=== PATIENT | male | born 1950 | race African-American/Black ===

== ENCOUNTER 2021-06-28 15:28 | Inpatient (IN) | payer MEDICARE, MEDICAID ==
[~2021-06-28] VITALS: Ht 185.4 cm; Wt 89.4 kg
[~2021-06-28 15:28] MED LIST: OMEP20CA14 PO; SUCR1ORA2 PO
[2021-06-28] MEDS ORDERED: ACETAMINOPHEN 500MG TABLET PO ONE (16:15)
[2021-06-28 19:05] LABS: HEMATOCRIT. 32.9 % (42.0-52.0); HEMOGLOBIN. 10.1 g/dL (14.0-18.0); MEAN CORPUSCULAR HEMOGLOBIN 18.7 pg (28.0-32.0); MEAN PLATELET VOLUME 8.3 fl (7.4-10.4); PLATELET 392 x1000/uL (130-400); RED BLOOD CELL COUNT 5.39 mill/uL (4.7-6.1); RED CELL DISTRIBUTION WIDTH 21.1 % (11.6-14.6)
[2021-06-28 19:13] LABS: CHLORIDE 98 mEq/L (98-107)
[2021-06-28] MEDS ORDERED: KETOROLAC 30MG/ML VIAL IV ONE (19:15)
[2021-06-28 19:20] LABS: PLATELET ESTIMATE NORMAL
[2021-06-28 21:02] LABS: INR 1.1; PROTHROMBIN TIME 11.8 sec (9.6-11.0)
[2021-06-28 21:03] LABS: ETHANOL BLOOD < 10 mg/dL
[2021-06-28 21:05] LABS: TOTAL IRON BINDING CAPACITY 415 ug/dL (250-450)
[2021-06-28 21:24] LABS: FOLIC ACID (FOLATE) SERUM 9.4 ng/mL (>5.38)
[2021-06-28] MEDS ORDERED: GUAIFENESIN 200MG/10ML SUGAR FREE UDC PO PRN (21:30)
[2021-06-28] MEDS ORDERED: TRAMADOL 50MG TABLET PO PRN (21:30)
[2021-06-28] MEDS ORDERED: DOCUSATE SODIUM 100MG CAPSULE PO PRN (21:30)
[2021-06-28] MEDS ORDERED: CLONIDINE 0.1MG TABLET PO PRN (21:30)
[2021-06-28] MEDS ORDERED: ACETAMINOPHEN 325MG TABLET PO PRN ×2 (21:30)
[2021-06-28] MEDS ORDERED: MAGNESIUM/ALUMINUM HYDROXIDE/SIMETHICONE 30ML UDC PO PRN (21:30)
[2021-06-28] MEDS ORDERED: ZOLPIDEM TARTRATE 5MG TABLET PO PRN (21:30)
[2021-06-28] MEDS ORDERED: NITROGLYCERIN 0.4MG TABLET SL SL PRN (21:30)
[2021-06-28] MEDS ORDERED: ONDANSETRON HCL 4MG/2ML INJ IV PRN (21:30)
[2021-06-28] MEDS ORDERED: IPRATROPIUM/ALBUTEROL 0.5-3(2.5)MG/3ML NEB NEB PRN (21:30)
[2021-06-28] MEDS: ENOXAPARIN 40MG/0.4ML SYR SUBCUT SCH (22:16)
[2021-06-28 22:30] VITALS: BP 143/80
[2021-06-29] VITALS: BP 143/80
[2021-06-29 00:06] LABS: CREATINE KINASE 233 IU/L (39-308)
[2021-06-29 00:08] LABS: CREATINE KINASE MB FRACTION < 1.0 ng/mL (0.5-3.6)
[2021-06-29] MEDS ORDERED: AMLO5TAB88 PO (00:18)
[2021-06-29] MEDS ORDERED: TRAM50TA3 PO (00:18)
[2021-06-29] MEDS ORDERED: OMEP20CA14 PO (00:18)
[2021-06-29] MEDS ORDERED: ATOR20TA65 PO (00:18)
[2021-06-29] MEDS ORDERED: BENA40TA9 PO (00:18)
[2021-06-29] MEDS ORDERED: PHEN95TA44 MT (00:18)
[2021-06-29] MEDS ORDERED: TAMS-11 MT (00:18)
[2021-06-29] MEDS ORDERED: FLUC200T51 PO (00:18)
[2021-06-29] MEDS ORDERED: TRAZ-251 PO (00:18)
[2021-06-29 04:00] VITALS: BP 156/80
[2021-06-29] MEDS ORDERED: *PATIENT'S OWN MEDICATION STORAGE XX SCH (05:45)
[2021-06-29] MEDS: MORPHINE SULFATE 2 MG/ML CPJ (NOT FOR IM USE) IV PRN ×2 (06:13→22:20)
[2021-06-29 07:06] LABS: CHLORIDE 102 mEq/L (98-107)
[2021-06-29 07:32] LABS: HEMATOCRIT. 31.4 % (42.0-52.0); HEMOGLOBIN. 9.4 g/dL (14.0-18.0); MEAN CORPUSCULAR HEMOGLOBIN 18.4 pg (28.0-32.0); MEAN CORPUSCULAR VOLUME 61.3 fL (80.0-94.0); MEAN PLATELET VOLUME 9.1 fl (7.4-10.4); PLATELET 377 x1000/uL (130-400); RED BLOOD CELL COUNT 5.12 mill/uL (4.7-6.1)
[2021-06-29 07:34] LABS: CREATINE KINASE 211 IU/L (39-308); PHOSPHORUS 1.7 mg/dL (2.5-4.9)
[2021-06-29 08:00] VITALS: BP 143/77
[2021-06-29] MEDS: ASCORBIC ACID 500 MG TABLET PO SCH ×2 (09:12→22:09)
[2021-06-29] MEDS: FAMOTIDINE 20MG TABLET PO SCH ×2 (09:12→22:10)
[2021-06-29] MEDS: CHOLECALCIFEROL (D3) 1000 UNIT TABLET PO SCH (09:13)
[2021-06-29] MEDS: METOPROLOL TARTRATE 25MG TABLET PO SCH ×2 (09:13→22:10)
[2021-06-29 12:00] VITALS: BP 143/84
[2021-06-29 13:46] LABS: PLATELET ESTIMATE NORMAL
[2021-06-29 16:00] VITALS: BP 148/77
[2021-06-29 20:00] VITALS: BP 139/83
[2021-06-29] MEDS: ENOXAPARIN 40MG/0.4ML SYR SUBCUT SCH (22:10)
[2021-06-30] VITALS: BP 136/74
[2021-06-30 04:00] VITALS: BP 178/79
[2021-06-30 05:26] LABS: *AMPHETAMINES SCREEN URINE NEGATIVE (NEGATIVE); *BARBITURATES SCREEN URINE NEGATIVE (NEGATIVE); *BENZODIAZEPINES SCREEN URINE NEGATIVE (NEGATIVE)
[2021-06-30 05:27] LABS: *COCAINE SCREEN URINE NEGATIVE (NEGATIVE); METHADONE URINE SCREEN NEGATIVE (NEGATIVE); OPIATES URINE SCREEN PRESUMTIVE POSITIVE (NEGATIVE); PHENCYCLIDINE URINE SCREEN NEGATIVE (NEGATIVE)
[2021-06-30 05:28] LABS: CANNABINOID URINE SCREEN NEGATIVE (NEGATIVE)
[2021-06-30 08:00] VITALS: BP 143/79
[2021-06-30] MEDS: ASCORBIC ACID 500 MG TABLET PO SCH ×2 (08:55→22:02)
[2021-06-30] MEDS: CHOLECALCIFEROL (D3) 1000 UNIT TABLET PO SCH (08:56)
[2021-06-30] MEDS: FAMOTIDINE 20MG TABLET PO SCH ×2 (08:56→22:02)
[2021-06-30] MEDS: METOPROLOL TARTRATE 25MG TABLET PO SCH ×2 (08:56→22:02)
[2021-06-30] MEDS: MORPHINE SULFATE 2 MG/ML CPJ (NOT FOR IM USE) IV PRN (14:43)
[2021-06-30 20:00] VITALS: BP 149/85
[2021-06-30 21:14] VITALS: BP 146/71
[2021-06-30] MEDS: ENOXAPARIN 40MG/0.4ML SYR SUBCUT SCH (21:30)
[2021-07-01] VITALS: BP 139/62
[2021-07-01 04:00] VITALS: BP 139/86
[2021-07-01 08:00] VITALS: BP 139/85
[2021-07-01] MEDS: ASCORBIC ACID 500 MG TABLET PO SCH ×2 (09:00→21:10)
[2021-07-01] MEDS: METOPROLOL TARTRATE 25MG TABLET PO SCH ×2 (09:00→21:12)
[2021-07-01] MEDS: FAMOTIDINE 20MG TABLET PO SCH ×2 (09:00→21:10)
[2021-07-01] MEDS: CHOLECALCIFEROL (D3) 1000 UNIT TABLET PO SCH (09:00)
[2021-07-01] MEDS ORDERED: HYDROMORPHONE HCL/PF 2MG/ML (OR) ONE (10:06)
[2021-07-01] MEDS ORDERED: DEXAMETHASONE 4MG/ML 1ML VIAL ONE (10:06)
[2021-07-01] MEDS ORDERED: TRANEXAMIC ACID 1,000 MG in SODIUM CHLORIDE 0.9% 100 ML IV NR (10:30)
[2021-07-01] MEDS ORDERED: TRANEXAMIC ACID 1,000 MG/10 ML IV NR (10:30)
[2021-07-01] MEDS ORDERED: EPINEPHRINE 1:1000 1 MG/ML AMP ONE (10:32)
[2021-07-01] MEDS ORDERED: MORPHINE SULFATE 10 MG/ML CPJ ONE (10:33)
[2021-07-01] MEDS ORDERED: VANCOMYCIN HCL 1 GM/VIAL ONE (10:33)
[2021-07-01] MEDS ORDERED: BUPIVACAINE HCL/PF 0.5% (5MG/ML) 10ML ONE (10:33)
[2021-07-01] MEDS ORDERED: BUPIVACAINE HCL 0.5% (5MG/ML) 50ML ONE (10:33)
[2021-07-01] MEDS ORDERED: KETOROLAC 30MG/ML VIAL ONE (10:33)
[2021-07-01] MEDS ORDERED: CALCIUM CHLORIDE 1GM/10ML SYR IV ONE (10:40)
[2021-07-01] MEDS ORDERED: ALBUMIN HUMAN 25GM/100ML (25%) IV ONE (10:40)
[2021-07-01] MEDS ORDERED: LABETALOL 5MG/ML SYR 20 MG/4 ML SYRINGE IV PRN (11:15)
[2021-07-01] MEDS ORDERED: MEPERIDINE HCL/PF 25MG/ML CPJ IV PRN (11:15)
[2021-07-01] MEDS ORDERED: ONDANSETRON HCL 4MG/2ML INJ IV PRN (11:15)
[2021-07-01] MEDS ORDERED: HYDROMORPHONE HCL/PF 2MG/ML CPJ IV PRN (11:15)
[2021-07-01] MEDS ORDERED: SKIN ADHESIVE 0.7 GM EA TOP ONE (11:20)
[2021-07-01] MEDS ORDERED: HYDROCODONE/ACETAMINOPHEN 10/325MG TABLET PO PRN (11:30)
[2021-07-01] MEDS ORDERED: CEFAZOLIN 1000MG PREMIX 50 ML IV ONE (11:30)
[2021-07-01] MEDS ORDERED: HYDROCODONE/ACETAMINOPHEN 5/325MG TABLET PO PRN (11:30)
[2021-07-01] MEDS ORDERED: KETOROLAC 30MG/ML VIAL IV PRN (11:30)
[2021-07-01] MEDS ORDERED: ACETAMINOPHEN 325MG TABLET PO PRN (11:30)
[2021-07-01] MEDS ORDERED: NALOXONE HCL 0.4MG/ML VIAL IV PRN (11:45)
[2021-07-01 16:00] VITALS: BP 137/70
[2021-07-01] MEDS: CEFAZOLIN 1000MG PREMIX 50 ML IV SCH ×2 (16:52→23:12)
[2021-07-01] MEDS: DEXT 5%/0.9% NACL 1,000 ML IV SCH (19:09)
[2021-07-01 20:00] VITALS: BP 160/79
[2021-07-01] MEDS: ENOXAPARIN 40MG/0.4ML SYR SUBCUT SCH (21:12)
[2021-07-02] VITALS: BP 149/76
[2021-07-02] MEDS: DEXT 5%/0.9% NACL 1,000 ML IV SCH ×2 (03:21→15:36)
[2021-07-02 04:00] VITALS: BP 154/79
[2021-07-02 08:00] VITALS: BP 136/69
[2021-07-02] MEDS: ASCORBIC ACID 500 MG TABLET PO SCH ×2 (08:50→22:41)
[2021-07-02] MEDS: METOPROLOL TARTRATE 25MG TABLET PO SCH ×2 (08:51→22:41)
[2021-07-02] MEDS: CHOLECALCIFEROL (D3) 1000 UNIT TABLET PO SCH (08:51)
[2021-07-02] MEDS: FAMOTIDINE 20MG TABLET PO SCH ×2 (08:51→22:41)
[2021-07-02] MEDS: CEFAZOLIN 1000MG PREMIX 50 ML IV SCH ×2 (08:52→15:35)
[2021-07-02 09:47] LABS: HEMATOCRIT. 27.8 % (42.0-52.0); HEMOGLOBIN. 8.3 g/dL (14.0-18.0); MEAN CORPUSCULAR HEMOGLOBIN 18.3 pg (28.0-32.0); MEAN CORPUSCULAR VOLUME 61.5 fL (80.0-94.0); MEAN PLATELET VOLUME 8.8 fl (7.4-10.4); PLATELET 383 x1000/uL (130-400); RED BLOOD CELL COUNT 4.51 mill/uL (4.7-6.1); RED CELL DISTRIBUTION WIDTH 20.8 % (11.6-14.6)
[2021-07-02 12:00] VITALS: BP 153/67
[2021-07-02 12:52] LABS: PLATELET ESTIMATE NORMAL
[2021-07-02] MEDS: ONDANSETRON HCL 4MG/2ML INJ IV PRN ×2 (14:09→22:39)
[2021-07-02 16:00] VITALS: BP 157/73
[2021-07-02 20:00] VITALS: BP 140/95
[2021-07-02] MEDS: ENOXAPARIN 40MG/0.4ML SYR SUBCUT SCH (21:30)
[2021-07-02] MEDS: KETOROLAC 15MG/ML VIAL IV PRN (22:40)
[2021-07-03] VITALS: BP 133/64
[2021-07-03] MEDS: DEXT 5%/0.9% NACL 1,000 ML IV SCH ×3 (00:45→22:53)
[2021-07-03] MEDS: CEFAZOLIN 1000MG PREMIX 50 ML IV SCH ×3 (00:45→16:03)
[2021-07-03 04:00] VITALS: BP 164/76
[2021-07-03] MEDS: METOPROLOL TARTRATE 25MG TABLET PO SCH ×2 (09:22→22:17)
[2021-07-03] MEDS: FAMOTIDINE 20MG TABLET PO SCH ×2 (09:22→22:16)
[2021-07-03] MEDS: CHOLECALCIFEROL (D3) 1000 UNIT TABLET PO SCH (09:22)
[2021-07-03] MEDS: ASCORBIC ACID 500 MG TABLET PO SCH (09:22)
[2021-07-03 11:54] VITALS: BP 129/68
[2021-07-03 16:00] VITALS: BP 139/69
[2021-07-03] MEDS: FERROUS SULFATE 300MG/5ML UDC PO SCH (17:46)
[2021-07-03] MEDS ORDERED: FERROUS SULFATE 325MG TABLET PO SCH (17:50)
[2021-07-03 20:00] VITALS: BP 141/75
[2021-07-03] MEDS: ENOXAPARIN 40MG/0.4ML SYR SUBCUT SCH (22:17)
[2021-07-03] MEDS ORDERED: KETOROLAC 15MG/ML VIAL IV PRN (22:45)
[2021-07-03] MEDS ORDERED: ZOLPIDEM TARTRATE 5MG TABLET PO PRN (22:45)
[2021-07-03] MEDS: KETOROLAC 15MG/ML VIAL IV PRN (22:47)
[2021-07-04] VITALS (8 sets, daily range): BP systolic 140–158; BP diastolic 57–77
[2021-07-04] MEDS: FERROUS SULFATE 300MG/5ML UDC PO SCH ×3 (07:05→17:40)
[2021-07-04] MEDS: DEXT 5%/0.9% NACL 1,000 ML IV SCH ×2 (07:05→16:30)
[2021-07-04] MEDS ORDERED: ASCORBIC ACID 500 MG TABLET PO SCH (09:00)
[2021-07-04] MEDS ORDERED: CYANOCOBALAMIN 1000MCG/ML VIAL IM SCH (09:00)
[2021-07-04] MEDS: CHOLECALCIFEROL (D3) 1000 UNIT TABLET PO SCH (12:03)
[2021-07-04] MEDS: METOPROLOL TARTRATE 25MG TABLET PO SCH ×2 (12:04→21:16)
[2021-07-04] MEDS: FAMOTIDINE 20MG TABLET PO SCH ×2 (12:04→21:16)
[2021-07-04] MEDS ORDERED: KETOROLAC 30MG/ML VIAL IV PRN (21:15)
[2021-07-04] MEDS: ENOXAPARIN 40MG/0.4ML SYR SUBCUT SCH (21:16)
[2021-07-17] MEDS ORDERED: CYANOCOBALAMIN 1000MCG/ML VIAL IM SCH (09:00)
== END 2021-07-04 22:40 | DRG 522 ==
LOC: ER 15:28 → 6EST 20:35 → SUPCPDRO 20:43 → ENRESERV 21:55
PROVIDERS: ADMIT Internal Medicine; ATTEND Internal Medicine
PROC: 0SRR0JA Replacement of Right Hip Joint, Femoral Surface with Synthetic Substitute, Uncemented, Open Approach (ICD-10-PCS; principal; 2021-07-01)
DX: S72.001A Fracture of unspecified part of neck of right femur, initial encounter for closed fracture (principal); E87.1 Hypo-osmolality and hyponatremia; D62 Acute posthemorrhagic anemia; I10 Essential (primary) hypertension; E61.1 Iron deficiency; K22.0 Achalasia of cardia; K21.9 Gastro-esophageal reflux disease without esophagitis; E53.8 Deficiency of other specified B group vitamins; Z20.822 Contact with and (suspected) exposure to COVID-19; D64.9 Anemia, unspecified; R13.10 Dysphagia, unspecified; R53.81 Other malaise; R26.9 Unspecified abnormalities of gait and mobility; W18.39XA Other fall on same level, initial encounter; Z79.899 Other long term (current) drug therapy; Z85.46 Personal history of malignant neoplasm of prostate; Z88.5 Allergy status to narcotic agent; Z87.891 Personal history of nicotine dependence; Z82.49 Family history of ischemic heart disease and other diseases of the circulatory system; Y93.89 Activity, other specified; Y92.89 Other specified places as the place of occurrence of the external cause; Y99.8 Other external cause status
CPT/HCPCS: 36415; 71045; 72170; 73552; 80053; 80305; 80320; 82550; 82553; 82607; 82746; 83540; 83550; 83735; 84100; 84443; 84484; 85025; 86850; 86900; 86920; 87426; 92610; 93005; 93970; 97116; 97162; 97166; 97530; 99285; C1776; J0690; J1100; J1170; J1650; J1885; J2270; J2405; J3370; J3420; J3490; J7042; J7050; P9047; G0480

== ENCOUNTER 2021-07-04 22:40 | Inpatient (IN) | payer MEDICARE, MEDICAID ==
[~2021-07-04] VITALS: Ht 185.4 cm; Wt 77.2 kg
[2021-07-04 22:40] VITALS: BP 138/76
[~2021-07-04 22:40] MED LIST changes: +AMLO5TAB88 PO; +ATOR20TA65 PO; +BENA40TA9 PO; +FLUC200T51 PO; +PHEN95TA44 MT; +TAMS-11 MT; +TRAM50TA3 PO; +TRAZ-251 PO
[2021-07-04] MEDS ORDERED: CLONIDINE 0.1MG TABLET PO PRN (23:30)
[2021-07-04] MEDS ORDERED: IPRATROPIUM/ALBUTEROL 0.5-3(2.5)MG/3ML NEB HHN PRN (23:30)
[2021-07-04] MEDS ORDERED: ONDANSETRON HCL 4MG TABLET PO PRN (23:30)
[2021-07-04] MEDS ORDERED: NITROGLYCERIN 0.4MG TABLET SL SL PRN (23:30)
[2021-07-04] MEDS ORDERED: MAGNESIUM/ALUMINUM HYDROXIDE/SIMETHICONE 30ML UDC PO PRN (23:30)
[2021-07-04] MEDS ORDERED: KETOROLAC 15MG/ML VIAL IV PRN (23:30)
[2021-07-04] MEDS ORDERED: NALOXONE HCL 0.4 MG/ML 1ML VIAL IV PRN (23:30)
[2021-07-05] MEDS: DEXT 5%/0.9% NACL 1,000 ML IV SCH ×3 (03:35→22:10)
[2021-07-05] MEDS ORDERED: KETOROLAC 30MG/ML VIAL IV PRN (07:15)
[2021-07-05 07:33] LABS: HEMATOCRIT. 26.7 % (42.0-52.0); HEMOGLOBIN. 8.3 g/dL (14.0-18.0); MEAN CORPUSCULAR HEMOGLOBIN 19.3 pg (28.0-32.0); MEAN CORPUSCULAR VOLUME 61.9 fL (80.0-94.0); MEAN PLATELET VOLUME 8.6 fl (7.4-10.4); PLATELET 408 x1000/uL (130-400); RED BLOOD CELL COUNT 4.31 mill/uL (4.7-6.1); RED CELL DISTRIBUTION WIDTH 20.7 % (11.6-14.6)
[2021-07-05 07:47] LABS: CHLORIDE 101 mEq/L (98-107)
[2021-07-05 08:00] VITALS: BP 118/61
[2021-07-05] MEDS: ASCORBIC ACID 500 MG TABLET PO SCH (09:14)
[2021-07-05] MEDS: FAMOTIDINE 20MG TABLET PO SCH ×2 (09:14→22:13)
[2021-07-05] MEDS: FERROUS SULFATE 300MG/5ML UDC PO SCH ×3 (09:14→18:48)
[2021-07-05] MEDS: CHOLECALCIFEROL (D3) 1000 UNIT TABLET PO SCH (09:15)
[2021-07-05] MEDS: CYANOCOBALAMIN 1000MCG/ML VIAL IM SCH (09:16)
[2021-07-05] MEDS: METOPROLOL TARTRATE 25MG TABLET PO SCH ×2 (09:16→22:12)
[2021-07-05] MEDS: ENOXAPARIN 40MG/0.4ML SYR SUBCUT SCH (09:16)
[2021-07-05] MEDS ORDERED: HYDROCODONE/ACETAMINOPHEN 5/325MG TABLET PO PRN (11:00)
[2021-07-05] MEDS ORDERED: HYDROCODONE/ACETAMINOPHEN 10/325MG TABLET PO PRN (11:00)
[2021-07-05] MEDS: ACETAMINOPHEN 325MG TABLET PO PRN ×2 (15:30→22:10)
[2021-07-05 20:00] VITALS: BP 149/55
[2021-07-05 20:29] LABS: PLATELET ESTIMATE INCREASED
[2021-07-06] MEDS: DEXT 5%/0.9% NACL 1,000 ML IV SCH ×2 (06:52→16:21)
[2021-07-06 06:56] LABS: HEMATOCRIT. 25.1 % (42.0-52.0); HEMOGLOBIN. 7.9 g/dL (14.0-18.0); MEAN CORPUSCULAR HEMOGLOBIN 19.7 pg (28.0-32.0); MEAN CORPUSCULAR VOLUME 62.7 fL (80.0-94.0); MEAN PLATELET VOLUME 8.8 fl (7.4-10.4); PLATELET 411 x1000/uL (130-400); RED CELL DISTRIBUTION WIDTH 21.3 % (11.6-14.6)
[2021-07-06 08:00] VITALS: BP 158/73
[2021-07-06] MEDS: ASCORBIC ACID 500 MG TABLET PO SCH (08:12)
[2021-07-06] MEDS: CHOLECALCIFEROL (D3) 1000 UNIT TABLET PO SCH (08:12)
[2021-07-06] MEDS: METOPROLOL TARTRATE 25MG TABLET PO SCH ×2 (08:12→20:46)
[2021-07-06] MEDS: FAMOTIDINE 20MG TABLET PO SCH ×2 (08:12→20:46)
[2021-07-06] MEDS: FERROUS SULFATE 300MG/5ML UDC PO SCH ×3 (08:12→16:21)
[2021-07-06] MEDS: ENOXAPARIN 40MG/0.4ML SYR SUBCUT SCH (08:13)
[2021-07-06] MEDS: CYANOCOBALAMIN 1000MCG/ML VIAL IM SCH (08:13)
[2021-07-06 13:48] LABS: NUCLEATED RED BLOOD CELLS 1 /100 WBC; PLATELET ESTIMATE INCREASED
[2021-07-06] MEDS: DOCUSATE SODIUM 100MG CAPSULE PO PRN (16:21)
[2021-07-06] MEDS: ACETAMINOPHEN 325MG TABLET PO PRN (16:21)
[2021-07-06 20:00] VITALS: BP 157/71
[2021-07-07] MEDS: DEXT 5%/0.9% NACL 1,000 ML IV SCH (06:23)
[2021-07-07 08:21] VITALS: BP 152/67
[2021-07-07] MEDS ORDERED: FERROUS SULFATE 325MG TABLET PO SCH (09:00)
[2021-07-07] MEDS: FERROUS SULFATE 300MG/5ML UDC PO SCH ×3 (09:40→18:01)
[2021-07-07] MEDS: CHOLECALCIFEROL (D3) 1000 UNIT TABLET PO SCH (09:40)
[2021-07-07] MEDS: ASCORBIC ACID 500 MG TABLET PO SCH (09:41)
[2021-07-07] MEDS: ENOXAPARIN 40MG/0.4ML SYR SUBCUT SCH (09:41)
[2021-07-07] MEDS: METOPROLOL TARTRATE 25MG TABLET PO SCH ×2 (09:41→20:50)
[2021-07-07] MEDS: FAMOTIDINE 20MG TABLET PO SCH ×2 (09:41→20:50)
[2021-07-07] MEDS: DOCUSATE SODIUM 100MG CAPSULE PO PRN (09:41)
[2021-07-07] MEDS: CYANOCOBALAMIN 1000MCG/ML VIAL IM SCH (09:42)
[2021-07-07] MEDS: ACETAMINOPHEN 325MG TABLET PO PRN (18:04)
[2021-07-07 20:00] VITALS: BP 149/65
[2021-07-07] MEDS: ZOLPIDEM TARTRATE 5MG TABLET PO PRN (21:08)
[2021-07-07 23:20] VITALS: BP 134/76
[2021-07-07 23:38] VITALS: BP 146/68
[2021-07-08 00:38] VITALS: BP 146/73
[2021-07-08 01:38] VITALS: BP 155/65
[2021-07-08 08:00] VITALS: BP 139/71
[2021-07-08 08:58] LABS: HEMATOCRIT 30.4 % (42.0-52.0); HEMOGLOBIN 9.4 g/dL (14.0-18.0)
[2021-07-08] MEDS: ENOXAPARIN 40MG/0.4ML SYR SUBCUT SCH (10:41)
[2021-07-08] MEDS: ASCORBIC ACID 500 MG TABLET PO SCH (10:42)
[2021-07-08] MEDS: DOCUSATE SODIUM 100MG CAPSULE PO PRN (10:42)
[2021-07-08] MEDS: FAMOTIDINE 20MG TABLET PO SCH ×2 (10:42→20:45)
[2021-07-08] MEDS: FERROUS SULFATE 300MG/5ML UDC PO SCH ×3 (10:42→17:55)
[2021-07-08] MEDS: CHOLECALCIFEROL (D3) 1000 UNIT TABLET PO SCH (10:42)
[2021-07-08] MEDS: CYANOCOBALAMIN 1000MCG/ML VIAL IM SCH (10:44)
[2021-07-08] MEDS: METOPROLOL TARTRATE 25MG TABLET PO SCH ×2 (10:44→20:45)
[2021-07-08 20:00] VITALS: BP 144/75
[2021-07-08] MEDS: ACETAMINOPHEN 325MG TABLET PO PRN (22:40)
[2021-07-09 08:00] VITALS: BP 138/67
[2021-07-09] MEDS: CHOLECALCIFEROL (D3) 1000 UNIT TABLET PO SCH (08:45)
[2021-07-09] MEDS: CYANOCOBALAMIN 1000MCG/ML VIAL IM SCH (08:45)
[2021-07-09] MEDS: DOCUSATE SODIUM 100MG CAPSULE PO PRN ×2 (08:46→17:44)
[2021-07-09] MEDS: FERROUS SULFATE 300MG/5ML UDC PO SCH ×3 (08:47→17:46)
[2021-07-09] MEDS: FAMOTIDINE 20MG TABLET PO SCH ×2 (08:47→21:45)
[2021-07-09] MEDS: METOPROLOL TARTRATE 25MG TABLET PO SCH ×2 (08:47→22:07)
[2021-07-09] MEDS: ASCORBIC ACID 500 MG TABLET PO SCH (08:47)
[2021-07-09] MEDS: ENOXAPARIN 40MG/0.4ML SYR SUBCUT SCH ×2 (09:00→17:43)
[2021-07-09 20:00] VITALS: BP 147/65
[2021-07-09] MEDS: ACETAMINOPHEN 325MG TABLET PO PRN (22:03)
[2021-07-09] MEDS: ZOLPIDEM TARTRATE 5MG TABLET PO PRN (22:08)
[2021-07-10 08:00] VITALS: BP 124/82
[2021-07-10] MEDS: FAMOTIDINE 20MG TABLET PO SCH (08:39)
[2021-07-10] MEDS: ASCORBIC ACID 500 MG TABLET PO SCH (08:39)
[2021-07-10] MEDS: CHOLECALCIFEROL (D3) 1000 UNIT TABLET PO SCH (08:39)
[2021-07-10] MEDS: METOPROLOL TARTRATE 25MG TABLET PO SCH ×2 (08:39→22:30)
[2021-07-10] MEDS: DOCUSATE SODIUM 100MG CAPSULE PO PRN (08:40)
[2021-07-10] MEDS: ACETAMINOPHEN 325MG TABLET PO PRN (08:40)
[2021-07-10] MEDS: FERROUS SULFATE 300MG/5ML UDC PO SCH ×3 (08:40→15:55)
[2021-07-10] MEDS: CYANOCOBALAMIN 1000MCG/ML VIAL IM SCH (08:40)
[2021-07-10] MEDS: ENOXAPARIN 40MG/0.4ML SYR SUBCUT SCH (15:29)
[2021-07-10] MEDS: PANTOPRAZOLE SODIUM 40 MG/VIAL IV SCH (15:52)
[2021-07-10 20:00] VITALS: BP 143/70
[2021-07-10] MEDS: TRAMADOL 50MG TABLET PO PRN (22:34)
[2021-07-11] MEDS: ZOLPIDEM TARTRATE 5MG TABLET PO PRN ×2 (00:36→23:31)
[2021-07-11 07:47] LABS: HEMATOCRIT. 31.6 % (42.0-52.0); MEAN CORPUSCULAR HEMOGLOBIN 20.7 pg (28.0-32.0); MEAN CORPUSCULAR VOLUME 65.9 fL (80.0-94.0); MEAN PLATELET VOLUME 8.6 fl (7.4-10.4); PLATELET 592 x1000/uL (130-400); RED CELL DISTRIBUTION WIDTH 25.5 % (11.6-14.6)
[2021-07-11 08:00] VITALS: BP 139/75
[2021-07-11 08:21] LABS: CHLORIDE 96 mEq/L (98-107)
[2021-07-11] MEDS: METOPROLOL TARTRATE 25MG TABLET PO SCH ×2 (09:40→20:39)
[2021-07-11] MEDS: CYANOCOBALAMIN 1000MCG/ML VIAL IM SCH (09:40)
[2021-07-11] MEDS: ASCORBIC ACID 500 MG TABLET PO SCH (09:40)
[2021-07-11] MEDS: FERROUS SULFATE 300MG/5ML UDC PO SCH ×3 (09:41→18:02)
[2021-07-11] MEDS: CHOLECALCIFEROL (D3) 1000 UNIT TABLET PO SCH (09:41)
[2021-07-11] MEDS: PANTOPRAZOLE SODIUM 40 MG/VIAL IV SCH ×2 (10:17→18:32)
[2021-07-11] MEDS: ENOXAPARIN 40MG/0.4ML SYR SUBCUT SCH (16:00)
[2021-07-11] MEDS: TRAMADOL 50MG TABLET PO PRN (18:18)
[2021-07-11 20:00] VITALS: BP 128/62
[2021-07-11 22:37] LABS: PLATELET ESTIMATE MARKEDLY INCREASED
[2021-07-12 08:26] VITALS: BP 114/57
[2021-07-12] MEDS: ASCORBIC ACID 500 MG TABLET PO SCH (08:38)
[2021-07-12] MEDS: FERROUS SULFATE 300MG/5ML UDC PO SCH ×3 (08:38→16:56)
[2021-07-12] MEDS: PANTOPRAZOLE SODIUM 40 MG/VIAL IV SCH ×2 (08:38→16:56)
[2021-07-12] MEDS: CHOLECALCIFEROL (D3) 1000 UNIT TABLET PO SCH (08:39)
[2021-07-12] MEDS: METOPROLOL TARTRATE 25MG TABLET PO SCH ×2 (08:39→21:07)
[2021-07-12] MEDS: ACETAMINOPHEN 325MG TABLET PO PRN (11:20)
[2021-07-12] MEDS ORDERED: METO25TA6 MT (14:25)
[2021-07-12] MEDS ORDERED: ATOR20TA65 PO (14:25)
[2021-07-12] MEDS ORDERED: TAMS-11 MT (14:25)
[2021-07-12] MEDS: ENOXAPARIN 40MG/0.4ML SYR SUBCUT SCH ×2 (15:04→15:08)
[2021-07-12 15:09] LABS: 25-HYDROXY VITAMIN D3 9.6 ng/mL (.)
[2021-07-12 20:00] VITALS: BP 156/76
[2021-07-12] MEDS: TRAMADOL 50MG TABLET PO PRN (21:16)
[2021-07-13 08:00] VITALS: BP 138/70
[2021-07-13] MEDS: TRAMADOL 50MG TABLET PO PRN (08:06)
[2021-07-13] MEDS: PANTOPRAZOLE SODIUM 40 MG/VIAL IV SCH ×2 (08:07→17:49)
[2021-07-13] MEDS: FERROUS SULFATE 300MG/5ML UDC PO SCH ×3 (08:07→17:49)
[2021-07-13] MEDS: CHOLECALCIFEROL (D3) 1000 UNIT TABLET PO SCH (08:07)
[2021-07-13] MEDS: ASCORBIC ACID 500 MG TABLET PO SCH (08:07)
[2021-07-13] MEDS: METOPROLOL TARTRATE 25MG TABLET PO SCH ×2 (08:09→21:01)
[2021-07-13 10:51] VITALS: BP 138/70
[2021-07-13] MEDS ORDERED: TRAMADOL 50MG TABLET PO PRN (13:00)
[2021-07-13] MEDS: ACETAMINOPHEN 325MG TABLET PO PRN (13:10)
[2021-07-13] MEDS ORDERED: VANCOMYCIN 1,750 MG in DEXT 5% WATER 500 ML IV NR (17:00)
[2021-07-13] MEDS: ENOXAPARIN 40MG/0.4ML SYR SUBCUT SCH (17:48)
[2021-07-13] MEDS: CEFEPIME 1,000 MG in DEXTROSE 5% WATER 50 ML IV SCH (17:49)
[2021-07-13] MEDS: DOCUSATE SODIUM 100MG CAPSULE PO PRN ×2 (18:07→18:11)
[2021-07-13 20:00] VITALS: BP 136/74
[2021-07-13] MEDS ORDERED: ERGOCALCIFEROL 50000UNITS CAPSULE PO SCH (21:00)
[2021-07-14] MEDS: VANCOMYCIN 1 G PREMIX 200 ML IV SCH ×2 (01:13→09:29)
[2021-07-14] MEDS: GUAIFENESIN 200MG/10ML SUGAR FREE UDC PO PRN ×2 (01:13→10:20)
[2021-07-14] MEDS: CEFEPIME 1,000 MG in DEXTROSE 5% WATER 50 ML IV SCH (04:28)
[2021-07-14 05:53] LABS: CLARITY URINE CLEAR (CLEAR); COLOR URINE YELLOW (YELLOW); KETONES URINE NEGATIVE (NEGATIVE); LEUKOCYTE ESTERASE URINE TRACE (NEGATIVE); NITRITE URINE NEGATIVE (NEGATIVE); OCCULT BLOOD URINE NEGATIVE (NEGATIVE); PH URINE 6.5 (4.5-8.0); PROTEIN URINE NEGATIVE (NEGATIVE); SPECIFIC GRAVITY URINE 1.005 (1.005-1.030); UROBILINOGEN URINE 0.2 E.U./dL (0.2-1.0)
[2021-07-14 07:02] LABS: CHLORIDE 90 mEq/L (98-107)
[2021-07-14 07:04] LABS: HEMATOCRIT. 30.1 % (42.0-52.0); HEMOGLOBIN. 9.7 g/dL (14.0-18.0); MEAN CORPUSCULAR HEMOGLOBIN 21.5 pg (28.0-32.0); MEAN CORPUSCULAR VOLUME 66.6 fL (80.0-94.0); MEAN PLATELET VOLUME 8.6 fl (7.4-10.4); PLATELET 391 x1000/uL (130-400); RED BLOOD CELL COUNT 4.53 mill/uL (4.7-6.1); RED CELL DISTRIBUTION WIDTH 26.3 % (11.6-14.6)
[2021-07-14 07:26] LABS: CREATINE KINASE 188 IU/L (39-308)
[2021-07-14 08:00] VITALS: BP 128/68
[2021-07-14] MEDS: ASCORBIC ACID 500 MG TABLET PO SCH (09:25)
[2021-07-14] MEDS: METOPROLOL TARTRATE 25MG TABLET PO SCH (09:26)
[2021-07-14] MEDS: DOCUSATE SODIUM 100MG CAPSULE PO PRN (09:26)
[2021-07-14] MEDS: FERROUS SULFATE 300MG/5ML UDC PO SCH ×2 (09:26→12:45)
[2021-07-14] MEDS: PANTOPRAZOLE SODIUM 40 MG/VIAL IV SCH (09:29)
[2021-07-14] MEDS: CHOLECALCIFEROL (D3) 1000 UNIT TABLET PO SCH (10:18)
[2021-07-14] MEDS ORDERED: ONDANSETRON HCL 4MG/2ML INJ IV PRN (13:45)
[2021-07-14 13:56] VITALS: BP 128/68
[2021-07-14 14:22] LABS: PLATELET ESTIMATE NORMAL
[2021-07-14 17:05] LABS: CHLORIDE 92 mEq/L (98-107)
[2021-07-14] MEDS ORDERED: OMEP20CA14 PO (20:13)
[2021-07-14] MEDS ORDERED: PHEN-909 PO (20:13)
[2021-07-14] MEDS ORDERED: AMLO5TAB88 PO (20:13)
[2021-07-14] MEDS ORDERED: BENA40TA9 PO (20:13)
[2021-07-14] MEDS ORDERED: FLUC200T51 PO (20:13)
[2021-07-17] MEDS ORDERED: CYANOCOBALAMIN 1000MCG/ML VIAL IM SCH (09:00)
== END 2021-07-14 14:50 | disposition short-term general hospital (02) | DRG 535 ==
LOC: UNDODISIN 07-14 14:50 → 8WST 07-14 16:07
PROVIDERS: ADMIT Physical Medicine & Rehabilitation Spinal Cord Injury Medicine; ATTEND Internal Medicine
PROC: 30233N1 Transfusion of Nonautologous Red Blood Cells into Peripheral Vein, Percutaneous Approach (ICD-10-PCS; principal; 2021-07-07)
DX: S72.001A Fracture of unspecified part of neck of right femur, initial encounter for closed fracture (principal); A41.59 Other Gram-negative sepsis; D62 Acute posthemorrhagic anemia; E87.1 Hypo-osmolality and hyponatremia; E44.0 Moderate protein-calorie malnutrition; K21.9 Gastro-esophageal reflux disease without esophagitis; I10 Essential (primary) hypertension; F06.34 Mood disorder due to known physiological condition with mixed features; D63.8 Anemia in other chronic diseases classified elsewhere; E83.51 Hypocalcemia; K22.0 Achalasia of cardia; K59.00 Constipation, unspecified; R30.0 Dysuria; R05.9 Cough, unspecified; R11.10 Vomiting, unspecified; E53.8 Deficiency of other specified B group vitamins; R53.81 Other malaise; R26.2 Difficulty in walking, not elsewhere classified; W01.0XXA Fall on same level from slipping, tripping and stumbling without subsequent striking against object, initial encounter; Z82.49 Family history of ischemic heart disease and other diseases of the circulatory system; Y93.89 Activity, other specified; Y92.89 Other specified places as the place of occurrence of the external cause; Y99.8 Other external cause status; Z85.46 Personal history of malignant neoplasm of prostate; Z91.81 History of falling; Z79.899 Other long term (current) drug therapy; Z92.3 Personal history of irradiation; Z87.891 Personal history of nicotine dependence; Y93.I9 Activity, other involving external motion; Y92.481 Parking lot as the place of occurrence of the external cause; Z68.22 Body mass index [BMI] 22.0-22.9, adult
CPT/HCPCS: 36415; 71045; 74018; 80048; 80053; 81003; 82270; 82306; 82550; 84134; 84145; 85014; 85018; 85025; 85044; 86850; 86900; 86920; 87070; 87077; 87186; 92523; 92610; 93970; 97110; 97112; 97116; 97150; 97162; 97166; 97530; 97535; C9113; J0692; J1650; J2405; J3370; J3420; J7040; J7042; J7060; P9016; Q0162

== ENCOUNTER 2021-07-14 16:34 | Inpatient (IN) | payer MEDICARE, MEDICAID ==
[~2021-07-14] VITALS: Ht 182.9 cm; Wt 74.4 kg
[2021-07-14 16:00] VITALS: BP 147/68
[~2021-07-14 16:34] MED LIST changes: -AMLO5TAB88 PO; -BENA40TA9 PO; -FLUC200T51 PO; +METO25TA6 MT; -OMEP20CA14 PO; -PHEN95TA44 MT; -SUCR1ORA2 PO
[2021-07-14 17:30] VITALS: BP 146/68
[2021-07-14] MEDS ORDERED: GUAIFENESIN 200MG/10ML SUGAR FREE UDC PO PRN (18:00)
[2021-07-14] MEDS ORDERED: ACETAMINOPHEN 325MG TABLET PO PRN (18:00)
[2021-07-14] MEDS ORDERED: DOCUSATE SODIUM 100MG CAPSULE PO SCH (18:00)
[2021-07-14 20:00] VITALS: BP 134/64
[2021-07-14] MEDS ORDERED: FLUC200T51 PO (20:13)
[2021-07-14] MEDS ORDERED: AMLO5TAB88 PO (20:13)
[2021-07-14] MEDS ORDERED: OMEP20CA14 PO (20:13)
[2021-07-14] MEDS ORDERED: PHEN-909 PO (20:13)
[2021-07-14] MEDS ORDERED: BENA40TA9 PO (20:13)
[2021-07-14] MEDS ORDERED: *PATIENT'S OWN MEDICATION STORAGE XX SCH (21:30)
[2021-07-14] MEDS ORDERED: NALOXONE HCL 0.4MG/ML VIAL IV PRN (21:30)
[2021-07-14] MEDS: ONDANSETRON HCL 4MG TABLET PO PRN (22:06)
[2021-07-14] MEDS: ENOXAPARIN 40MG/0.4ML SYR SUBCUT SCH (22:06)
[2021-07-14] MEDS: PANTOPRAZOLE SODIUM 40 MG/VIAL IV SCH (22:08)
[2021-07-14] MEDS: METOPROLOL TARTRATE 25MG TABLET PO SCH (22:10)
[2021-07-14] MEDS: TRAMADOL 50MG TABLET PO PRN (22:24)
[2021-07-15] VITALS: BP 126/64
[2021-07-15 04:00] VITALS: BP 148/72
[2021-07-15 07:05] LABS: HEMATOCRIT. 33.2 % (42.0-52.0); HEMOGLOBIN. 10.6 g/dL (14.0-18.0); MEAN CORPUSCULAR HEMOGLOBIN 21.4 pg (28.0-32.0); MEAN CORPUSCULAR VOLUME 66.8 fL (80.0-94.0); MEAN PLATELET VOLUME 8.8 fl (7.4-10.4); PLATELET 459 x1000/uL (130-400); RED BLOOD CELL COUNT 4.97 mill/uL (4.7-6.1); RED CELL DISTRIBUTION WIDTH 26.5 % (11.6-14.6)
[2021-07-15 07:11] LABS: CHLORIDE 92 mEq/L (98-107)
[2021-07-15 08:00] VITALS: BP 151/73
[2021-07-15] MEDS ORDERED: CHOLECALCIFEROL (D3) 1000 UNIT TABLET PO SCH (09:00)
[2021-07-15] MEDS: PANTOPRAZOLE SODIUM 40 MG/VIAL IV SCH ×2 (10:31→16:42)
[2021-07-15] MEDS: METOPROLOL TARTRATE 25MG TABLET PO SCH ×2 (10:32→20:56)
[2021-07-15] MEDS: CYANOCOBALAMIN 1000MCG/ML VIAL IM SCH (10:32)
[2021-07-15] MEDS: ASCORBIC ACID 500 MG TABLET PO SCH (10:32)
[2021-07-15 12:00] VITALS: BP 141/68
[2021-07-15] MEDS ORDERED: VANCOMYCIN 1500MG in DEXTROSE 5% WATER 250ML IV SCH (14:00)
[2021-07-15 14:04] LABS: PLATELET ESTIMATE INCREASED
[2021-07-15] MEDS: CEFEPIME 1,000 MG in DEXTROSE 5% WATER 50 ML IV SCH ×2 (14:20→23:23)
[2021-07-15 16:00] VITALS: BP 136/82
[2021-07-15 20:00] VITALS: BP 133/75
[2021-07-15] MEDS: ENOXAPARIN 40MG/0.4ML SYR SUBCUT SCH (20:55)
[2021-07-15] MEDS: ONDANSETRON HCL 4MG TABLET PO PRN (23:20)
[2021-07-15] MEDS: TRAMADOL 50MG TABLET PO PRN (23:22)
[2021-07-16] VITALS: BP 141/72
[2021-07-16 04:00] VITALS: BP 135/73
[2021-07-16] MEDS: VANCOMYCIN 1G PREMIX 200 ML IV SCH ×2 (05:41→16:53)
[2021-07-16 07:35] LABS: CHLORIDE 97 mEq/L (98-107)
[2021-07-16 07:45] LABS: HEMATOCRIT. 32.3 % (42.0-52.0); HEMOGLOBIN. 10.2 g/dL (14.0-18.0); MEAN CORPUSCULAR HEMOGLOBIN 21.1 pg (28.0-32.0); MEAN PLATELET VOLUME 8.8 fl (7.4-10.4); PLATELET 492 x1000/uL (130-400); RED BLOOD CELL COUNT 4.83 mill/uL (4.7-6.1)
[2021-07-16 08:00] VITALS: BP 159/74
[2021-07-16] MEDS: METOPROLOL TARTRATE 25MG TABLET PO SCH ×2 (08:57→21:56)
[2021-07-16] MEDS: CEFEPIME 1,000 MG in DEXTROSE 5% WATER 50 ML IV SCH ×2 (08:57→21:56)
[2021-07-16] MEDS: CYANOCOBALAMIN 1000MCG/ML VIAL IM SCH (08:58)
[2021-07-16] MEDS: PANTOPRAZOLE SODIUM 40 MG/VIAL IV SCH ×2 (08:58→16:44)
[2021-07-16] MEDS: ASCORBIC ACID 500 MG TABLET PO SCH (08:58)
[2021-07-16 12:00] VITALS: BP 150/77
[2021-07-16 16:00] VITALS: BP 151/74
[2021-07-16 17:42] LABS: PLATELET ESTIMATE INCREASED
[2021-07-16 20:00] VITALS: BP 142/76
[2021-07-16] MEDS: ENOXAPARIN 40MG/0.4ML SYR SUBCUT SCH (21:57)
[2021-07-16] MEDS: ZOLPIDEM TARTRATE 5MG TABLET PO PRN (22:38)
[2021-07-16] MEDS: TRAMADOL 50MG TABLET PO PRN (22:44)
[2021-07-17] VITALS: BP 155/81
[2021-07-17 04:00] VITALS: BP 136/79
[2021-07-17] MEDS: VANCOMYCIN 1G PREMIX 200 ML IV SCH ×2 (05:24→17:37)
[2021-07-17 06:59] LABS: CHLORIDE 98 mEq/L (98-107)
[2021-07-17 07:25] LABS: HEMATOCRIT. 33.7 % (42.0-52.0); HEMOGLOBIN. 10.7 g/dL (14.0-18.0); MEAN CORPUSCULAR HEMOGLOBIN 20.9 pg (28.0-32.0); MEAN CORPUSCULAR VOLUME 65.7 fL (80.0-94.0); MEAN PLATELET VOLUME 8.6 fl (7.4-10.4); PLATELET 538 x1000/uL (130-400); RED BLOOD CELL COUNT 5.13 mill/uL (4.7-6.1); RED CELL DISTRIBUTION WIDTH 26.4 % (11.6-14.6)
[2021-07-17 08:00] VITALS: BP 159/71
[2021-07-17] MEDS: CEFEPIME 1,000 MG in DEXTROSE 5% WATER 50 ML IV SCH ×2 (08:58→20:21)
[2021-07-17] MEDS: ASCORBIC ACID 500 MG TABLET PO SCH (08:58)
[2021-07-17] MEDS: PANTOPRAZOLE SODIUM 40 MG/VIAL IV SCH ×2 (08:59→17:37)
[2021-07-17] MEDS: METOPROLOL TARTRATE 25MG TABLET PO SCH ×2 (08:59→20:22)
[2021-07-17] MEDS: CYANOCOBALAMIN 1000MCG/ML VIAL IM SCH (09:00)
[2021-07-17 11:21] LABS: NUCLEATED RED BLOOD CELLS 1 /100 WBC; PLATELET ESTIMATE INCREASED
[2021-07-17 12:00] VITALS: BP 134/74
[2021-07-17 16:00] VITALS: BP 161/72
[2021-07-17] MEDS: CLONIDINE 0.1MG TABLET PO PRN (17:37)
[2021-07-17 20:00] VITALS: BP 142/71
[2021-07-17] MEDS: ENOXAPARIN 40MG/0.4ML SYR SUBCUT SCH (20:21)
[2021-07-17] MEDS: ZOLPIDEM TARTRATE 5MG TABLET PO PRN (21:02)
[2021-07-17] MEDS: TRAMADOL 50MG TABLET PO PRN (21:02)
[2021-07-18] VITALS: BP 131/72
[2021-07-18 04:00] VITALS: BP 161/76
[2021-07-18] MEDS: CLONIDINE 0.1MG TABLET PO PRN ×2 (04:28→16:00)
[2021-07-18] MEDS: VANCOMYCIN 1G PREMIX 200 ML IV SCH (05:29)
[2021-07-18 06:51] LABS: CHLORIDE 99 mEq/L (98-107)
[2021-07-18 06:55] LABS: HEMATOCRIT. 32.8 % (42.0-52.0); HEMOGLOBIN. 10.3 g/dL (14.0-18.0); MEAN CORPUSCULAR HEMOGLOBIN 20.9 pg (28.0-32.0); MEAN CORPUSCULAR VOLUME 66.6 fL (80.0-94.0); PLATELET 545 x1000/uL (130-400); RED BLOOD CELL COUNT 4.92 mill/uL (4.7-6.1); RED CELL DISTRIBUTION WIDTH 26.1 % (11.6-14.6)
[2021-07-18 08:00] VITALS: BP 152/67
[2021-07-18] MEDS ORDERED: FAMOTIDINE 20MG/2ML VIAL IV SCH (09:00)
[2021-07-18] MEDS: ASCORBIC ACID 500 MG TABLET PO SCH (09:53)
[2021-07-18] MEDS: METOPROLOL TARTRATE 25MG TABLET PO SCH (09:53)
[2021-07-18] MEDS: CEFEPIME 1,000 MG in DEXTROSE 5% WATER 50 ML IV SCH (09:54)
[2021-07-18] MEDS: CYANOCOBALAMIN 1000MCG/ML VIAL IM SCH (09:54)
[2021-07-18 11:09] VITALS: BP 152/67
[2021-07-18 15:38] VITALS: BP 163/92
[2021-07-18 18:54] LABS: PLATELET ESTIMATE INCREASED
[2021-07-20] MEDS ORDERED: ERGOCALCIFEROL 50000UNITS CAPSULE PO SCH (09:00)
[2021-07-28] MEDS ORDERED: CYANOCOBALAMIN 1000MCG/ML VIAL IM SCH (09:00)
== END 2021-07-18 17:20 | disposition home health service (06) | DRG 872 ==
LOC: 8WST 16:34
PROVIDERS: ADMIT Internal Medicine; ATTEND Internal Medicine
DX: A41.53 Sepsis due to Serratia (principal); E87.1 Hypo-osmolality and hyponatremia; D62 Acute posthemorrhagic anemia; K92.2 Gastrointestinal hemorrhage, unspecified; D50.9 Iron deficiency anemia, unspecified; I10 Essential (primary) hypertension; K22.0 Achalasia of cardia; B19.20 Unspecified viral hepatitis C without hepatic coma; B96.89 Other specified bacterial agents as the cause of diseases classified elsewhere; E55.9 Vitamin D deficiency, unspecified; K21.9 Gastro-esophageal reflux disease without esophagitis; D63.8 Anemia in other chronic diseases classified elsewhere; Z96.641 Presence of right artificial hip joint; K59.00 Constipation, unspecified; E53.8 Deficiency of other specified B group vitamins; R26.9 Unspecified abnormalities of gait and mobility; D64.81 Anemia due to antineoplastic chemotherapy; R53.81 Other malaise; Z85.46 Personal history of malignant neoplasm of prostate; Z87.891 Personal history of nicotine dependence; Z92.3 Personal history of irradiation; Z88.6 Allergy status to analgesic agent; Z79.899 Other long term (current) drug therapy; Z82.49 Family history of ischemic heart disease and other diseases of the circulatory system
CPT/HCPCS: 36415; 74176; 80048; 80202; 82533; 83930; 83935; 84145; 85025; 97162; 97166; C9113; J0692; J1650; J3370; J3420; J3490; J7040; J7060; Q0162